=== PATIENT | male | born 1975 | race Two or more races ===

== ENCOUNTER 2024-03-29 06:30 | Day surgery (SDC) | payer OTHER ==
[2024-03-21 10:43] LABS: HEMATOCRIT 45.6 % (39.0-48.0); HEMOGLOBIN 15.8 g/dL (13-16.00); MEAN CELL VOLUME 90.4 fL (80.0-100.00); MEAN CORPUSCULAR HEMOGLOBIN 31.4 pg (27.00-32.0); MEAN CORPUSCULAR HGB CONC 34.7 g/dl (32.0-36.0); PLATELET COUNT 236 K/uL (150-450); RED BLOOD COUNT 5.05 M/uL (4.00-6.00); RED CELL DISTRIBUTION WIDTH 13.7 % (11.5-14.5)
[2024-03-21 10:44] LABS: PH,URINE 5.5 (5.0-8.0); URINE APPEARANCE Clear; URINE BILIRRUBIN Negative (NEGATIVE); URINE BLOOD Negative; URINE COLOR Yellow; URINE GLUCOSE Negative (NEGATIVE); URINE LEUKOCYTE Negative; URINE NITRATE Negative; URINE PROTEIN Negative (NEGATIVE); URINE UROBILINOGEN 0.2 E.U./dl
[2024-03-21 11:00] LABS: URINE EPITHELIAL CELLS 0.9 uL (0.0-38.8); URINE RBC 1.2 uL (0.0-20.8); URINE WBC 1.3 uL (0.0-23.2)
[2024-03-21 11:23] LABS: INR 0.99; PARTIAL THROMBOPLASTIN TIME 28.9 SECONDS (22.0-34.0); PROTHROMBIN TIME 10.4 SECONDS (9.0-11.5)
[2024-03-21 11:24] LABS: ALBUMIN 4.2 gm/dL (3.4-5.0); BILIRUBIN TOTAL 1.68 mg/dL (0.3-1.2); CALCIUM 9.3 mg/dL (8.5-10.1); CREATININE SERUM 1.2 mg/dL (0.70-1.30); GFR 64.62; GLOBULINA 3.8 G/DL (2.4-3.5); POTASSIUM 4.4 mEq/L (3.5-5.1)
[~2024-03-29 06:30] MED LIST: LIDOCAINE15 GM TOP
[2024-03-29] MEDS ORDERED: DIBUCAINE 30 GM TUBE RECTAL ONE (10:00)
[2024-03-29] MEDS ORDERED: HEMOSTATIC MATRIX 1 KIT KIT TOP ONE (10:00)
[2024-03-29] MEDS ORDERED: CEFTRIAXONE SODIUM 2,000 MG VIAL IV ONE (10:00)
[2024-03-29] MEDS ORDERED: BUPIVACAINE LIPOSOME/PF 266 MG/20 ML VIAL IJ ONE (10:00)
[2024-03-29] MEDS ORDERED: POVIDONE-IODINE 118 ML BOTT TOP ONE (10:00)
[2024-03-29] MEDS ORDERED: BUPIVACAINE HCL 30 ML VIAL IJ ONE (10:00)
[2024-03-29] MEDS ORDERED: METRONIDAZOLE/SODIUM CHLORIDE 500 MG/100 ML PIGGYBACK IV ONE (10:00)
[2024-03-29] MEDS ORDERED: TAMSULOSIN HCL 0.4 MG CAP PO ONE (10:30)
[2024-03-29] MEDS ORDERED: OXYC1TAB9 PO (10:35)
== END 2024-03-29 17:45 | disposition home or self-care (01) ==
LOC: CIR.AMB 06:30
PROVIDERS: ATTEND Surgery
DX: K64.2 Third degree hemorrhoids (principal); K64.4 Residual hemorrhoidal skin tags; K62.89 Other specified diseases of anus and rectum; K62.5 Hemorrhage of anus and rectum; K64.5 Perianal venous thrombosis

== ENCOUNTER 2024-04-17 19:37 | Emergency (ER) | payer OTHER ==
[~2024-04-17] VITALS: Ht 182.9 cm; Wt 95.3 kg
[~2024-04-17 19:37] MED LIST changes: +OXYC1TAB9 PO
[2024-04-17] MEDS ORDERED: DEXAMETHASONE SODIUM PHOSPHATE 4 MG/ML VIAL IM STA (22:36)
[2024-04-17] MEDS ORDERED: CEFTRIAXONE SODIUM 1,000 MG VIAL IM STA (22:36)
[2024-04-17] MEDS ORDERED: DEXAMETHASONE SODIUM PHOSPHATE 4 MG/ML VIAL ONE (22:46)
[2024-04-17] MEDS ORDERED: CEFTRIAXONE SODIUM 1,000 MG VIAL ONE (22:46)
[2024-04-17] MEDS ORDERED: LIDOCAINE HCL 1% 10ML VIAL ONE (22:47)
[2024-04-17 23:26] LABS: HEMATOCRIT 39.5 % (39.0-48.0); HEMOGLOBIN 13.4 g/dL (13-16.00); MEAN CELL VOLUME 90.1 fL (80.0-100.00); MEAN CORPUSCULAR HEMOGLOBIN 30.6 pg (27.00-32.0); PLATELET COUNT 241 K/uL (150-450); RED BLOOD COUNT 4.38 M/uL (4.00-6.00); RED CELL DISTRIBUTION WIDTH 13.4 % (11.5-14.5)
[2024-04-17 23:52] LABS: CALCIUM 9.1 mg/dL (8.5-10.1); CREATININE SERUM 1.14 mg/dL (0.70-1.30); GFR 68.56; POTASSIUM 3.63 mEq/L (3.5-5.1)
[2024-04-18] MEDS ORDERED: ZITHROMAX500 MG PO (02:07)
[2024-04-18] MEDS ORDERED: ORASEP SPRAY30 ML MM (02:08)
== END 2024-04-18 02:21 | disposition home or self-care (01) ==
LOC: ER 19:38
PROVIDERS: General Practice
DX: J02.9 Acute pharyngitis, unspecified (principal); Z20.822 Contact with and (suspected) exposure to COVID-19